=== PATIENT | female | born 1940 | race Two or more races ===

== ENCOUNTER 2019-01-01 09:37 | Outpatient (CLI) | payer OTHER ==
[~2019-01-01 09:37] MED LIST: ADULT ASPIRIN81 MG; LIPITOR; SYNTHROID50 MCG
== END 2019-01-01 09:44 | disposition home or self-care (01) ==
LOC: RAD 501 09:37
DX: M79.641 Pain in right hand (principal); M25.531 Pain in right wrist

== ENCOUNTER 2019-06-02 15:10 | Outpatient (CLI) | payer OTHER | END 2019-06-02 15:17 | disposition home or self-care (01) | LOC: RAD 15:10 | DX: R05 Cough (principal) ==

== ENCOUNTER 2021-09-13 12:04 | Outpatient (CLI) | payer OTHER | END 2021-09-13 12:13 | disposition home or self-care (01) | LOC: RAD 12:04 | PROVIDERS: ATTEND Internal Medicine Rheumatology | DX: M15.8 Other polyosteoarthritis (principal) ==

== ENCOUNTER 2021-10-14 06:52 | Emergency (ER) | payer OTHER ==
[~2021-10-14] VITALS: Ht 165.1 cm; Wt 56.7 kg
[2021-10-14] MEDS ORDERED: SIMVASTATIN5 MG PO (07:06)
== END 2021-10-14 09:52 | disposition home or self-care (01) ==
LOC: ER 06:52
DX: M65.9 Synovitis and tenosynovitis, unspecified (principal)

== ENCOUNTER → 2022-01-10 | Outpatient (CLI) | payer OTHER ==
[~2022-01-10] MED LIST changes: +SIMVASTATIN5 MG PO
== END | disposition home or self-care (01) ==
LOC: RAD 10:23
PROVIDERS: ATTEND Physical Medicine & Rehabilitation
DX: M24.551 Contracture, right hip (principal); M24.552 Contracture, left hip; M25.552 Pain in left hip; M25.551 Pain in right hip

== ENCOUNTER 2022-08-14 13:11 | Outpatient (CLI) | payer OTHER | END 2022-08-14 13:14 | disposition home or self-care (01) | LOC: TOM 13:11 | PROVIDERS: ATTEND Otolaryngology | DX: J34.2 Deviated nasal septum (principal) ==

== ENCOUNTER 2023-01-07 10:03 | Outpatient (CLI) | payer OTHER | END 2023-01-07 10:09 | disposition home or self-care (01) | LOC: MRI 10:03 | PROVIDERS: ATTEND Physical Medicine & Rehabilitation | DX: M25.551 Pain in right hip (principal) | CPT/HCPCS: 73721 ==

== ENCOUNTER 2023-05-11 14:27 | Emergency (ER) | payer OTHER ==
[~2023-05-11] VITALS: Ht 152.4 cm; Wt 64.4 kg
[2023-05-11] MEDS ORDERED: ATORVASTATIN CA10 MG PO (16:08)
== END 2023-05-11 20:10 | disposition home or self-care (01) ==
LOC: ER 14:27
DX: S39.92XA Unspecified injury of lower back, initial encounter (principal); W19.XXXA Unspecified fall, initial encounter; Y93.9 Activity, unspecified; Y92.9 Unspecified place or not applicable; Y99.9 Unspecified external cause status
CPT/HCPCS: 72100; 72170; 96372; 99283; J1885

== ENCOUNTER 2023-07-16 07:13 | Outpatient (CLI) | payer OTHER ==
[~2023-07-16 07:13] MED LIST changes: +ATORVASTATIN CA10 MG PO
== END 2023-07-16 07:20 | disposition home or self-care (01) ==
LOC: RAD 07:13
PROVIDERS: ATTEND Orthopaedic Surgery Adult Reconstructive Orthopaedic Surgery
DX: M16.10 Unilateral primary osteoarthritis, unspecified hip (principal); I11.9 Hypertensive heart disease without heart failure

== ENCOUNTER 2023-08-05 09:35 | Outpatient (CLI) | payer OTHER | END 2023-08-05 10:00 | disposition home or self-care (01) | LOC: WOUND MED 09:35 | PROVIDERS: ATTEND Specialist | DX: S49.91XA Unspecified injury of right shoulder and upper arm, initial encounter (principal); L02.413 Cutaneous abscess of right upper limb | CPT/HCPCS: 11042; A4927; A6222; A6223; G0463 ==

== ENCOUNTER 2023-08-08 07:18 | Outpatient (CLI) | payer OTHER | END 2023-08-08 09:46 | disposition home or self-care (01) | LOC: WOUND MED 07:18 | PROVIDERS: ATTEND Specialist | DX: L02.413 Cutaneous abscess of right upper limb (principal) | CPT/HCPCS: 97602; A4927; A6199; A6219; A6223; G0463 ==

== ENCOUNTER 2023-08-12 08:13 | Outpatient (CLI) | payer OTHER | END 2023-08-12 13:16 | disposition home or self-care (01) | LOC: WOUND MED 08:13 | PROVIDERS: ATTEND Specialist | DX: L02.413 Cutaneous abscess of right upper limb (principal) | CPT/HCPCS: 97602; A4927; A6223; G0463 ==

== ENCOUNTER 2023-10-28 08:56 | Emergency (ER) | payer OTHER ==
[~2023-10-28] VITALS: Ht 152.4 cm; Wt 63.0 kg
[2023-10-28] MEDS ORDERED: ALBUTEROL SULFATE 3 ML/2.5 MG AMPUL.NEB IH STA (09:36)
[2023-10-28] MEDS ORDERED: BUDESONIDE 0.5 MG/2 ML AMPUL.NEB IH STA (09:36)
[2023-10-28 10:16] LABS: HEMATOCRIT 35.9 % (36.0-45.00); HEMOGLOBIN 12.1 g/dL (12.0-15.00); MEAN CELL VOLUME 89.2 fL (80.00-100.00); MEAN CORPUSCULAR HGB CONC 33.6 g/dl (32.0-36.0); RED BLOOD COUNT 4.03 M/uL (4.00-6.00); RED CELL DISTRIBUTION WIDTH 15.3 % (11.5-14.5)
[2023-10-28 10:18] LABS: PLATELET COUNT 143 K/uL (150-450)
[2023-10-28 11:04] LABS: CREATININE SERUM 0.62 mg/dL (0.55-1.02); GFR 92.15; POTASSIUM 3.9 mEq/L (3.5-5.1)
[2023-10-28 11:05] LABS: C-REACTIVE PROTEIN 1.05 MG/DL (0.00-0.29)
[2023-10-28] MEDS ORDERED: MONTELUKAST SOD10 MG PO (12:29)
[2023-10-28] MEDS ORDERED: ALBUTEROL2.5 MG/3 M IH (12:29)
[2023-10-29] MEDS ORDERED: SYNTHROID75 MCG (17:43)
[2023-10-29] MEDS ORDERED: PREGABALIN25 MG (17:44)
[2023-10-29] MEDS ORDERED: LIPITOR40 M1 (17:44)
== END 2023-10-28 12:35 | disposition home or self-care (01) ==
LOC: ER 08:56
PROVIDERS: Emergency Medicine
DX: B34.9 Viral infection, unspecified (principal); R53.81 Other malaise; Z20.822 Contact with and (suspected) exposure to COVID-19; Z88.1 Allergy status to other antibiotic agents

== ENCOUNTER 2023-10-29 16:42 | Emergency (ER) | payer OTHER ==
[~2023-10-29] VITALS: Ht 152.4 cm; Wt 62.1 kg
[~2023-10-29 16:42] MED LIST changes: +ALBUTEROL2.5 MG/3 M IH; +MONTELUKAST SOD10 MG PO
[2023-10-29] MEDS ORDERED: SYNTHROID75 MCG (17:43)
[2023-10-29] MEDS ORDERED: PREGABALIN25 MG (17:44)
[2023-10-29] MEDS ORDERED: LIPITOR40 M1 (17:44)
[2023-10-29] MEDS ORDERED: BUDESONIDE 0.5 MG/2 ML AMPUL.NEB IH ONE (17:45)
[2023-10-29 18:04] LABS: HEMATOCRIT 36.5 % (36.0-45.00); HEMOGLOBIN 12.2 g/dL (12.0-15.00); MEAN CELL VOLUME 89.6 fL (80.00-100.00); MEAN CORPUSCULAR HEMOGLOBIN 29.9 pg (27.00-32.0); MEAN CORPUSCULAR HGB CONC 33.4 g/dl (32.0-36.0); PLATELET COUNT 156 K/uL (150-450); RED BLOOD COUNT 4.08 M/uL (4.00-6.00); RED CELL DISTRIBUTION WIDTH 15.2 % (11.5-14.5)
[2023-10-29 18:29] LABS: ABG PH 7.479 (7.35-7.45); ABG PO2 95.1 mmHg (80-100); ABG pCO2 31.4 mmHg (35-45); BASE EXCESS 0.2 mmol/l; BICARBONATE 22.8 mmol/l (23-25); SaO2 97.9 %; Tco2 23.7 mmol/l
[2023-10-29 18:30] LABS: allen test SATISFACTORY; o2 21 %; puncture site RADIAL LEFT
== END 2023-10-29 19:46 | disposition home or self-care (01) ==
LOC: ER 16:42
PROVIDERS: Emergency Medicine
DX: J22 Unspecified acute lower respiratory infection (principal); Z88.8 Allergy status to other drugs, medicaments and biological substances; Z87.09 Personal history of other diseases of the respiratory system; Z20.822 Contact with and (suspected) exposure to COVID-19

== ENCOUNTER 2024-01-27 08:12 | Emergency (ER) | payer OTHER ==
[~2024-01-27] VITALS: Ht 152.4 cm; Wt 61.7 kg
[~2024-01-27 08:12] MED LIST changes: +LIPITOR40 M1; +PREGABALIN25 MG; +SYNTHROID75 MCG
== END 2024-01-27 09:06 | disposition home or self-care (01) ==
LOC: ER 08:13
DX: S41.111A Laceration without foreign body of right upper arm, initial encounter (principal); W45.8XXA Other foreign body or object entering through skin, initial encounter; Y93.89 Activity, other specified; Y92.018 Other place in single-family (private) house as the place of occurrence of the external cause; Y99.9 Unspecified external cause status; Z88.8 Allergy status to other drugs, medicaments and biological substances

== ENCOUNTER 2025-01-14 07:19 | Outpatient (CLI) | payer OTHER | END 2025-01-14 07:28 | disposition home or self-care (01) | LOC: RAD 07:19 | DX: M72.2 Plantar fascial fibromatosis (principal) ==

== ENCOUNTER 2025-07-20 09:43 | Outpatient (CLI) | payer OTHER | END 2025-07-20 09:49 | disposition home or self-care (01) | LOC: TOM 09:43 | PROVIDERS: ATTEND Pulmonary Function Technologist | DX: I50.9 Heart failure, unspecified (principal); J45.909 Unspecified asthma, uncomplicated | CPT/HCPCS: 71260; Q9965 ==